=== PATIENT | male | born 2000 | race African-American/Black ===

== ENCOUNTER 2020-05-08 18:52 | Emergency (ER) | payer BC, OTHER ==
--- NOTE | 2020-05-08 20:31 | ER Document Report ---
ED Medical Screen (RME) - General Chief Complaint: Palpitations Stated Complaint: PALPATATIONS Time Seen by Provider: 05/08/20 20:22 Primary Care Provider: JULISSA GARVIN MD [Primary Care Provider] - Follow up as needed TRAVEL OUTSIDE OF THE [place] IN LAST 30 DAYS: No - HPI Notes: 05/08/20 20:29 19-year-old male presents to ED for evaluation of palpitations for the last several weeks. Patient reports that he does have history of hypertension and had been on a blood pressure medication in the past however it had improved and he was subsequently taken off of it. Patient reports that his blood pressure appeared to be going up and he was seen and placed on a course of amlodipine. Patient states that he has been having palpitations and increased discomfort into the central aspect of his chest. He denies any worsening discomfort with deep inspiration. Denies cough symptoms. Reports he does not have concerns for Covid. Patient notes that he does not have any extremity swelling. Denies any fevers or chills. Denies any respiratory history. - Related Data Allergies/Adverse Reactions: No Known Allergies Allergy (Unverified 05/08/20 20:20) Home Medications: amlodipine for HTN Past Medical History - Social History Frequency of alcohol use: Rare Drug Abuse: Marijuana Physical Exam - Vital signs Vitals: Temp Pulse Resp BP Pulse Ox 98.1 F 107 H 18 184/98 H 100 05/08/20 19:04 05/08/20 19:04 05/08/20 19:04 05/08/20 19:04 05/08/20 19:04 General: No acute distress. Alert and oriented x3. Sitting comfortably in a stretcher. Skin: Intact without any jaundice, pallor, or erythema. Warm and dry. Heart: Regular rapid rate and rhythm. S1,S2. No murmurs, rubs, or gallops. Lungs: Clear to ausculation bilaterally. No wheezes, rhonchi, rales. Equal chest expansion. No retractions. Abdomen: Soft, nontender to palpation, nondistended. Positive bowel sounds in all 4 quadrants. No hepatosplenomegaly. No masses. No CVA tenderness bilaterally. Neuro: GCS 15. Moving all extremities without discomfort. Extremities: No calf tenderness or edema. No cyanosis or clubbing. Radial and pedal pulses 2+ bilaterally. Brisk capillary refill. Psych: Mood and affect appropriate. Course - Vital Signs Vital signs: Temp Pulse Resp BP Pulse Ox 98.1 F 107 H 18 184/98 H 100 05/08/20 19:04 05/08/20 19:04 05/08/20 19:04 05/08/20 19:04 05/08/20 19:04 Doctor's Discharge - Discharge Referrals: JULISSA GARVIN MD [Primary Care Provider] - Follow up as needed
--- NOTE | 2020-05-08 21:00 | RADIOLOGY REPORT (SQ) ---
EXAM DESCRIPTION: XR CHEST 1 VIEW COMPLETED DATE/TME: 05/08/2020 20:35 CLINICAL HISTORY: 19 years, Male, chest pain COMPARISON: None. TECHNIQUE: PA view of the chest FINDINGS: Cardiomediastinal silhouette is not enlarged. No suspicious lung pleural bone abnormalities. IMPRESSION: Negative PA view of the chest.
[2020-05-08 21:16] LABS: ABSOLUTE BASOPHILS # (AUTO) 0.1 10^3/uL (0.0-0.2); ABSOLUTE EOSINOPHILS # (AUTO) 0.2 10^3/uL (0.0-0.6); ABSOLUTE LYMPHOCYTES (AUTO) 4.6 10^3/uL (0.5-4.7); ABSOLUTE NEUT (AUTO) 5.8 10^3/uL (1.7-8.2); BASOPHILS % (AUTO) 0.9 % (0-2); EOSINOPHILS % (AUTO) 1.5 % (0-6); HEMATOCRIT 47.3 % (37.9-51.0); LYMPHOCYTES % (AUTO) 39.6 % (13-45); MEAN CORPUSCULAR HEMOGLOBIN 27.2 pg (27.0-33.4); MEAN CORPUSCULAR HGB CONC 33.8 g/dL (32.0-36.0); MEAN CORPUSCULAR VOLUME 81 fl (80-97); MONOCYTES % (AUTO) 8.3 % (3-13); PLATELET COUNT 310 10^3/uL (150-450); RED BLOOD COUNT 5.88 10^6/uL (4.35-5.55); RED CELL DISTRIBUTION WIDTH 13.6 % (11.5-14.0); SEGMENTED NEUTROPHILS % (AUTO) 49.7 % (42-78); TOTAL CELLS COUNTED % (AUTO) 100 %; WHITE BLOOD COUNT 11.7 10^3/uL (4.0-10.5)
--- NOTE | 2020-05-08 21:24 | EKG REPORT ---
SEVERITY:- ABNORMAL ECG - SINUS TACHYCARDIA ABNORMAL T, CONSIDER ISCHEMIA, INFERIOR LEADS : Confirmed by: Chandrika Dobbs MD 08-May-2020 21:24:04
[2020-05-08 21:36] LABS: ALBUMIN 4.8 g/dL (3.5-5.0); ALKALINE PHOSPHATASE 67 U/L (38-126); ANION GAP 7 (5-19); ASPARTATE AMINO TRANSFERASE 28 U/L (17-59); BILIRUBIN,DIRECT 0.1 mg/dL (0.0-0.4); BILIRUBIN,TOTAL 0.6 mg/dL (0.2-1.3); BLOOD UREA NITROGEN 17 mg/dL (7-20); CALCIUM 10.1 mg/dL (8.4-10.2); CARBON DIOXIDE 30 mmol/L (22-30); CHLORIDE 103 mmol/L (98-107); CREATINE KINASE 261 U/L (55-170); GLUCOSE 93 mg/dL (75-110); TOTAL PROTEIN 8.1 g/dL (6.3-8.2)
[2020-05-08 21:46] LABS: CREATINE KINASE MB 1.28 ng/mL (<4.55)
[2020-05-08 21:50] LABS: TROPONIN I < 0.012 ng/mL
[2020-05-08] MEDS ORDERED: NORMAL SALINE 1000 ML 1,000 ML IV ONE (22:38)
--- NOTE | 2020-05-08 22:58 | ER Document Report ---
ED General - General Chief Complaint: Palpitations Stated Complaint: PALPATATIONS Time Seen by Provider: 05/08/20 20:22 Primary Care Provider: JULISSA GARVIN MD [NO LOCAL MD] - Follow up as needed Notes: 19-year-old male with hypertension presents with approximately 3 weeks of chest pain he describes as dull left-sided ache that lasts for several hours and then goes away without any intervention. Patient says that he started having the pain when he started taking amlodipine for his hypertension and he has a pain reliably 1 hour after he takes the medication each time. Because of this he has stopped taking the medication which has improved his pain, but he was still concerned that he was having any pain so he came to the ED to be evaluated. Patient patient exercises frequently and has had no chest pain with any exertion. Patient denies any high cholesterol, diabetes, smoking, drug use, cardiac history and family, lower extremity edema, recent travel/trauma/surgery/immobilization, cancer history, exogenous estrogen use, DVT/PE/hypercoagulability history in self or family, cough, fever, back pain, abdominal pain, trauma, dizziness, syncope TRAVEL OUTSIDE OF THE [place] IN LAST 30 DAYS: No - Related Data Allergies/Adverse Reactions: No Known Allergies Allergy (Unverified 05/08/20 20:20) Home Medications: amlodipine for HTN Past Medical History - General Information source: Patient - Social History Smoking Status: Never Smoker Frequency of alcohol use: Rare Drug Abuse: Marijuana Family History: Reviewed & Not Pertinent Review of Systems - Review of Systems Notes: REVIEW OF SYSTEMS: CONSTITUTIONAL : Denies fever, chills, or sweats. EENT: Denies recent cold/sinus symptoms, denies throat pain CARDIOVASCULAR: + chest pain, -DESIREE RESPIRATORY: Denies cough, denies shortness of breath. GASTROINTESTINAL: Denies abdominal pain, nausea/vomiting. GENITOURINARY: Denies difficulty urinating, painful urination. MUSCULOSKELETAL: Denies neck pain, back pain. SKIN: Denies rash or skin lesions. HEMATOLOGIC : Denies easy bruising or bleeding. LYMPHATIC: Denies swollen, enlarged glands. NEUROLOGICAL: Denies headache, denies change in gait. PSYCHIATRIC: Denies anxiety or stress or depression. Physical Exam - Vital signs Vitals: Temp Pulse Resp BP Pulse Ox 98.1 F 107 H 18 184/98 H 100 05/08/20 19:04 12/17/20 19:04 05/08/20 19:04 05/08/20 19:04 05/08/20 19:04 - Notes Notes: PHYSICAL EXAMINATION: GENERAL: Very well-appearing, well-nourished smiling chatty young adult male with no visible signs of discomfort and in no acute distress. HEAD: Atraumatic, normocephalic. EYES: Pupils equal round and appropriate constriction, sclera anicteric, conjunctiva are normal. ENT: nares patent, moist mucous membranes. NECK: Normal range of motion, supple without lymphadenopathy, no thyroid masses palpable LUNGS: Breath sounds clear to auscultation bilaterally and equal. No wheezes rales or rhonchi. Normal respiratory rate and effort HEART: Mild tachycardia with regular rhythm, no murmurs rubs or gallops, no chest tenderness ABDOMEN: Soft, nontender, no guarding, no masses, no CVAT EXTREMITIES: Normal range of motion, no pitting or edema. No cyanosis. NEUROLOGICAL: Awake, alert, conversing appropriately, moves all extremities spontaneously. PSYCH: Normal mood, normal affect. SKIN: Warm, Dry, normal turgor, no rashes or lesions noted. Course - Re-evaluation Re-evalutation: 05/08/20 23:24 Patient with mild aching chest pain intermittently for past 3 weeks not associated with exertion with no shortness of breath or any other symptoms associated with this. Patient has hypertension and obesity is ACS risk factors so will her EKG and 2 troponins to rule out, but low suspicion and likely will be able to follow-up with [facility] outpatient if troponins are negative. Patient has mild tachycardia so obtained D-dimer to rule out PE given patient's lack of PE risk factors which was negative and sufficient to rule out PE in this low risk patient. Patient has self DC'd amlodipine because he attributes sympt oms to amlodipine so I will start patient on hydrochlorothiazide pending follow- up with his [facility]. 05/09/20 01:04 2 troponins negative, D-dimer negative, mild tachycardia resolved after 1 L flu id, very mild leukocytosis with no infectious symptoms which I have instructed patient to follow-up with his primary doctor about. patient given follow-up instructions and return to ED instructions which he demonstrated understanding of, patient ready for discharge. - Vital Signs Vital signs: Temp Pulse Resp BP Pulse Ox 98.1 F 107 H 18 140/84 H 100 05/08/20 19:04 05/08/20 19:04 05/08/20 19:04 05/09/20 00:31 05/08/20 19:04 - Laboratory Results Result Diagrams: 05/08/20 20:40 05/08/20 20:40 Laboratory Results Interpreted: 05/08/20 05/08/20 20:40 20:40 WBC 11.7 H RBC 5.88 H Creatine Kinase 261 H Critical Laboratory Results Reviewed: No Critical Results - Radiology Results Critical Radiology Results Reviewed: No Critical Results - EKG Interpretation by Me Additional EKG results interpreted by me: 05/09/20 01:10 Sinus rhythm, no significant ST elevations or depressions, no significant T wave abnormalities Discharge - Discharge Clinical Impression: Dehydration, Tachycardia Chest pain Qualifiers: Chest pain type: unspecified Qualified Code(s): R07.9 - Chest pain, unspecified Disposition: HOME, SELF-CARE Additional Instructions: Hydrochlorothiazide Hydrochlorothiazide is a diuretic medication. Diuretics are often called "water pills." The medicine flushes excess salt and water from the body. Diuretics are used for fluid retention (such as heart failure, cirrhosis, or lung disease) and for blood pressure control. Often hydrochlorothiazide is combined with other medicines in the same pill. Most patients prefer to take the medicine in the morning. Hydrochlorothiazide makes extra urine, which can be a problem if you take the pill at night. Diuretics make you lose potassium. Sometimes a good diet with plenty of fruit is enough to replace it. Sometimes a potassium supplement is necessary. Or, hydrochlorothiazide may be combined with medicines that prevent potassium loss. We usually recommend a blood potassium test in a few weeks. Contact your doctor if you develop extreme fatigue, muscle weakness, lethargy, confusion, or palpitations. Is very important that you follow-up with your primary doctor and the [facility] within 1 week about your symptoms. You had a mildly elevated white blood cell count during your visit which may not be meaningful but you should discuss this with your primary doctor to make sure that this is not an early sign of a dangerous condition such as cancer. If you have any worsening pain, shortness of breath, dizziness, leg swelling, fever, confusion, fainting, or any other worsening or alarming symptoms return to the emergency department immediately. Prescriptions: Hydrochlorothiazide [Hydrodiuril 25 mg Tablet] 25 mg PO QAM #14 tablet Referrals: JULISSA GARVIN MD [NO LOCAL MD] - Follow up in 1 week PATRICIA PALMER MD [ACTIVE STAFF] - Follow up in 1 week
[2020-05-08] MEDS ORDERED: HYDROCHLOROTHIAZIDE 25 MG TABLET PO ONE (23:16)
[2020-05-09 01:32] VITALS: BP 144/91
== END 2020-05-09 01:33 | disposition home or self-care (01) ==
LOC: ER 18:52
DX: R07.9 Chest pain, unspecified (principal); E86.0 Dehydration; R00.0 Tachycardia, unspecified; I10 Essential (primary) hypertension; T46.1X6A Underdosing of calcium-channel blockers, initial encounter; Z91.128 Patient's intentional underdosing of medication regimen for other reason; Z91.14 Patient's other noncompliance with medication regimen; E66.9 Obesity, unspecified; D72.829 Elevated white blood cell count, unspecified
CPT/HCPCS: 93005; 99285; 96360; 36415; 82553; 82550; 84443; 85025; 80053; 84484; 85379; 71045; 93010; J7030